=== PATIENT | male | born 1995 | race Caucasian/White ===

== ENCOUNTER 2022-11-25 13:27 | Inpatient (IN) | payer OTHER ==
[2022-11-25 15:51] LABS: Bacteria/HPF None Seen HPF (None Seen); Bilirubin Negative (Negative); Blood, Urine Negative (Negative); Clarity Clear (Clear); Glucose, Urine (Dipstick) 50 mg/dL (Negative); Ketone, Urine Negative (Negative); Leukocyte Negative Leu/uL (Negative); Nitrite Negative (Negative); Protein, Urine (Dipstick) 100 mg/dL (Neg-Trace); RBC/HPF 0-3 HPF (0-3); Squamous Epithelial 0-3 HPF (0-3); Urobilinogen Normal mg/dL (Less than 2)
[2022-11-25 15:51] LABS: #Eosinphils 0.1 thou/uL (0.0-0.7); #Lymphocytes 1.2 thou/uL (1.20-3.40); #Neutrophils 11.8 thou/uL (1.40-6.50); %Basophils 0.3 % (0.0-1.0); %Eosinophils 0.7 % (0.0-10.0); %Lymphocytes 8.4 % (21.0-51.0); %Monocytes 6.9 % (0.0-10.0); %Neutrophils 83.7 % (42.0-75.0); Mean Corpuscular HGB CONC 33.6 g/dL (32.0-36.0); Mean Corpuscular Hemoglobin 29.1 pg (27.0-31.0); Mean Corpuscular Volume 86.8 fl (78.0-98.0); Mean Platelet Volume 8.1 fL (7.4-10.4); Platelet Count 182 10x3/uL (130-400); RBC Distribution Width 11.9 % (11.5-14.5); Red Blood Cell (RBC) Count 5.15 mill/uL (4.70-6.10); White Blood Cell (WBC) Count 14.1 10x3/uL (4.8-10.8)
[2022-11-25] MEDS ORDERED: Iopamidol-370 76% 500 ML MDV (1 ML CHARGE) ONE (15:55)
[2022-11-25 15:56] LABS: SARS-CoV-2 NAA Rapid Test Not Detected (NotDetected)
[2022-11-25 15:57] LABS: Specific Gravity, Urine 1.058 (1.002-1.036)
[2022-11-25 16:06] LABS: ALT (SGPT) 27 U/L (8-55); AST (SGOT) 25 U/L (5-34); Albumin 3.5 g/dL (3.5-5.0); Alkaline Phosphatase 81 U/L (40-110); Anion Gap 14 mmol/L (10-20); BUN (Urea Nitrogen) 11 mg/dL (8.9-20.6); Bilirubin, Total 0.7 mg/dL (0.2-1.2); Calc. Creatinine Clearance 0 mL/min (70-130); Calcium 8.6 mg/dL (7.8-10.44); Carbon Dioxide 20 mmol/L (22-29); Chloride 109 mmol/L (98-107); Estimated GFR 98; Globulin 3.1 g/dL (2.4-3.5); Glucose 123 mg/dL (70-105); Potassium 4.8 mmol/L (3.5-5.1); Protein, Total 6.6 g/dL (6.0-8.3); Sodium 138 mmol/L (136-145)
[2022-11-25] MEDS ORDERED: Acetaminophen 325 MG TAB PO PRN (16:18)
[2022-11-25 16:51] LABS: CKMB 4.1 ng/mL (0-6.6)
[2022-11-25 17:02] LABS: INR-International Normal Ratio 1.1; PTT 40.4 sec (22.9-36.1)
[2022-11-25 17:21] LABS: D-Dimer Test Greater than 20.00 *mcg/mL (0.27-0.43)
[2022-11-25 18:46] VITALS: BMI 25.2
[2022-11-26 07:31] LABS: #Basophils 0.1 thou/uL (0.0-0.2); #Eosinphils 0.3 thou/uL (0.0-0.7); #Lymphocytes 2.6 thou/uL (1.20-3.40); #Monocytes 0.9 thou/uL (0.11-0.59); #Neutrophils 7.4 thou/uL (1.40-6.50); %Basophils 0.8 % (0.0-1.0); %Eosinophils 2.8 % (0.0-10.0); %Lymphocytes 23.1 % (21.0-51.0); %Monocytes 7.7 % (0.0-10.0); %Neutrophils 65.6 % (42.0-75.0); Hemoglobin 13.8 g/dL (14.0-18.0); Mean Corpuscular HGB CONC 32.5 g/dL (32.0-36.0); Mean Corpuscular Hemoglobin 28.2 pg (27.0-31.0); Mean Corpuscular Volume 86.8 fl (78.0-98.0); Mean Platelet Volume 7.6 fL (7.4-10.4); Platelet Count 207 10x3/uL (130-400); RBC Distribution Width 11.9 % (11.5-14.5); Red Blood Cell (RBC) Count 4.88 mill/uL (4.70-6.10); White Blood Cell (WBC) Count 11.3 10x3/uL (4.8-10.8)
[2022-11-26 07:51] LABS: Anion Gap 15 mmol/L (10-20); BUN (Urea Nitrogen) 9 mg/dL (8.9-20.6); Calc. Creatinine Clearance 134 mL/min (70-130); Calcium 8.7 mg/dL (7.8-10.44); Carbon Dioxide 22 mmol/L (22-29); Chloride 107 mmol/L (98-107); Estimated GFR 106; Glucose 101 mg/dL (70-105); Potassium 4.4 mmol/L (3.5-5.1); Sodium 140 mmol/L (136-145)
[2022-11-26] MEDS: traMADol HCl 50 MG TAB PO PRN (21:32)
[2022-11-27] MEDS: traMADol HCl 50 MG TAB PO PRN ×2 (03:06→20:46)
[2022-11-27 04:06] LABS: #Basophils 0.1 thou/uL (0.0-0.2); #Eosinphils 0.4 thou/uL (0.0-0.7); #Lymphocytes 2.8 thou/uL (1.20-3.40); #Neutrophils 5.6 thou/uL (1.40-6.50); %Basophils 0.6 % (0.0-1.0); %Lymphocytes 28.2 % (21.0-51.0); %Monocytes 10.3 % (0.0-10.0); %Neutrophils 56.9 % (42.0-75.0); Hemoglobin 14.6 g/dL (14.0-18.0); Mean Corpuscular HGB CONC 33.5 g/dL (32.0-36.0); Mean Corpuscular Hemoglobin 29.2 pg (27.0-31.0); Mean Platelet Volume 7.4 fL (7.4-10.4); Platelet Count 237 10x3/uL (130-400); RBC Distribution Width 11.7 % (11.5-14.5); Red Blood Cell (RBC) Count 5.01 mill/uL (4.70-6.10); White Blood Cell (WBC) Count 9.9 10x3/uL (4.8-10.8)
[2022-11-27 04:28] LABS: Anion Gap 15 mmol/L (10-20); BUN (Urea Nitrogen) 12 mg/dL (8.9-20.6); Calc. Creatinine Clearance 124 mL/min (70-130); Calcium 9.3 mg/dL (7.8-10.44); Carbon Dioxide 26 mmol/L (22-29); Chloride 105 mmol/L (98-107); Estimated GFR 97; Glucose 82 mg/dL (70-105); Potassium 4.1 mmol/L (3.5-5.1); Sodium 142 mmol/L (136-145)
[2022-11-27 13:27] LABS: INR-International Normal Ratio 1.1; PTT 32.1 sec (22.9-36.1); Prothrombin Time 14.3 sec (12.0-14.7)
[2022-11-27] MEDS ORDERED: Apixaban 5 MG TAB PO SCH (15:00)
[2022-11-27] MEDS ORDERED: Hyaluronidase, Human Recomb. 150 UNITS/ML VIAL SC PRN (20:05)
[2022-11-27] MEDS: Apixaban 5 MG TAB PO SCH (20:47)
[2022-11-28 05:10] LABS: #Eosinphils 0.4 thou/uL (0.0-0.7); #Lymphocytes 2.3 thou/uL (1.20-3.40); #Neutrophils 6.6 thou/uL (1.40-6.50); %Basophils 0.4 % (0.0-1.0); %Eosinophils 3.6 % (0.0-10.0); %Lymphocytes 22.4 % (21.0-51.0); %Monocytes 9.7 % (0.0-10.0); Mean Corpuscular HGB CONC 33.9 g/dL (32.0-36.0); Mean Corpuscular Hemoglobin 28.7 pg (27.0-31.0); Mean Corpuscular Volume 84.8 fl (78.0-98.0); Platelet Count 264 10x3/uL (130-400); RBC Distribution Width 11.5 % (11.5-14.5); Red Blood Cell (RBC) Count 5.24 mill/uL (4.70-6.10); White Blood Cell (WBC) Count 10.3 10x3/uL (4.8-10.8)
[2022-11-28 05:28] LABS: Anion Gap 15 mmol/L (10-20); BUN (Urea Nitrogen) 14 mg/dL (8.9-20.6); Calc. Creatinine Clearance 112 mL/min (70-130); Calcium 9.3 mg/dL (7.8-10.44); Carbon Dioxide 26 mmol/L (22-29); Chloride 102 mmol/L (98-107); Estimated GFR 86; Glucose 99 mg/dL (70-105); Potassium 4.1 mmol/L (3.5-5.1); Sodium 139 mmol/L (136-145)
[2022-11-28] MEDS: Apixaban 5 MG TAB PO SCH ×2 (08:51→21:33)
[2022-11-28 14:13] LABS: Cardiolipin IgA Ab 3.9 APL-U/mL (<14 Negative); Cardiolipin IgG Ab 1.4 GPL-U/mL (<10 Negative); Cardiolipin IgM Ab Less than 0.9 MPL-U/mL (<10 Negative); EliA APS New Method **** NEW METHOD ****
[2022-11-28 14:35] LABS: Cardiolipin IgA Ab 4.5 APL-U/mL (<14 Negative); Cardiolipin IgG Ab 1.4 GPL-U/mL (<10 Negative); Cardiolipin IgM Ab 1.1 MPL-U/mL (<10 Negative); EliA APS New Method **** NEW METHOD ****; beta-2-Glycoprotein I IgA Ab 3.5 U/mL (<7 Negative); beta-2-Glycoprotein I IgG Ab 1.3 U/mL (<7 Negative); beta-2-Glycoprotein I IgM Abs Less than 2.4 U/mL (<7 Negative)
[2022-11-28] MEDS: traMADol HCl 50 MG TAB PO PRN (21:35)
[2022-11-29] MEDS: Apixaban 5 MG TAB PO SCH ×2 (09:17→21:47)
[2022-11-29] MEDS: traMADol HCl 50 MG TAB PO PRN ×2 (09:28→21:49)
[2022-11-29 12:17] LABS: Factor IX Test 169.7 % ACTIVE (56-149)
[2022-11-29 12:32] LABS: HEX PHOS LA Tube 1 56.2 SEC; HEX PHOS LA Tube 2 44.5 SEC; Hexagonal Phospholipid Neut 11.7 SEC (0-8.0); Protein C Activity 99 % (78-152)
[2022-11-29 14:18] LABS: DRVVT Confirm 42.6; HEX PHOS LA Tube 1 56.2 SEC; HEX PHOS LA Tube 2 44.5 SEC; Hexagonal Phospholipid Neut 11.7 SEC (0-8.0)
[2022-11-29 15:40] LABS: Factor VIII Test 144.3 % ACTIVE (56-157)
[2022-11-30] MEDS: Apixaban 5 MG TAB PO SCH (09:00)
[2022-11-30 10:58] VITALS: TEMP 97.7
[2022-11-30 11:41] VITALS: BP 118/64
== END 2022-11-30 13:15 | disposition home or self-care (01) | DRG 299 ==
LOC: ERS 13:27 → ERHOLD 16:20 → CCU 18:39 → NEURO 11-28 00:22
PROVIDERS: ADMIT Family Medicine; ATTEND Family Medicine
DX: I82.431 Acute embolism and thrombosis of right popliteal vein (principal); I26.09 Other pulmonary embolism with acute cor pulmonale; I82.411 Acute embolism and thrombosis of right femoral vein; F41.1 Generalized anxiety disorder; I07.1 Rheumatic tricuspid insufficiency
CPT/HCPCS: 36415; 70450; 71275; 80048; 80053; 81003; 81015; 81240; 82553; 83090; 83880; 84146; 84484; 85025; 85240; 85250; 85300; 85303; 85305; 85307; 85379; 85598; 85610; 85613; 85730; 86146; 86147; 93005; 93306; 96372; J1650; Q9967